=== PATIENT | male | born 1985 | race Caucasian/White ===

== ENCOUNTER 2018-01-14 10:06 | Emergency (ER) | payer BC ==
[~2018-01-14] VITALS: Ht 172.7 cm; Wt 111.1 kg
[2018-01-14 10:18] VITALS: BP 152/92
== END 2018-01-14 11:20 | disposition home or self-care (01) ==
LOC: ER 10:06
DX: S05.02XA Injury of conjunctiva and corneal abrasion without foreign body, left eye, initial encounter (principal); X58.XXXA Exposure to other specified factors, initial encounter; Y93.89 Activity, other specified; Y99.8 Other external cause status; Y92.89 Other specified places as the place of occurrence of the external cause

== ENCOUNTER 2022-01-15 16:46 | Inpatient (IN) | payer BC ==
[~2022-01-15] VITALS: Ht 172.7 cm; Wt 116.5 kg
[2022-01-15] VITALS (7 sets, daily range): BP systolic 133–148; BP diastolic 83–105
[2022-01-15] MEDS ORDERED: HEPARIN 1,000 UNITS/ml 1ML VIAL IV ONE (17:00)
[2022-01-15] MEDS ORDERED: ASPirin 81 mg TAB PO ONE (17:00)
[2022-01-15] MEDS ORDERED: MORPHINE SULFATE 4 MG/ML SYR/VIAL ONE (17:09)
[2022-01-15] MEDS ORDERED: ONDANSETRON HCL 4 MG/2 ML VIAL ONE (17:09)
[2022-01-15] MEDS ORDERED: MORPHINE SULFATE INJ 2 MG/ml SYRG IV ONE (17:15)
[2022-01-15] MEDS ORDERED: ONDANSETRON HCL 4 MG/2 ML VIAL IV ONE (17:15)
[2022-01-15] MEDS ORDERED: MORPHINE SULFATE INJ 2 MG/ml SYRG IV PRN ×3 (17:15→18:45)
[2022-01-15] MEDS ORDERED: NITROGLYCERIN 0.4 MG SL TAB SL PRN ×3 (17:15→18:45)
[2022-01-15] MEDS ORDERED: MIDAZOLAM HCL 2MG/2ML 2ml VIAL (1mg/ml) ONE (17:21)
[2022-01-15] MEDS ORDERED: SODIUM CHL 0.9% 0 ML ONE (17:21)
[2022-01-15] MEDS ORDERED: fentaNYL CITRATE 100 MCG/2 ML VL ONE (17:21)
[2022-01-15] MEDS ORDERED: HEPARIN SODIUM (PORCINE) 5000 UNITS/ML 1ML VIAL ONE ×2 (17:21→18:02)
[2022-01-15] MEDS ORDERED: VERAPAMIL 2.5MG/ML INJ 2ML VIAL IV ONE (17:21)
[2022-01-15] MEDS ORDERED: SODIUM CHL 0.9% 50 ML ONE (17:22)
[2022-01-15] MEDS ORDERED: ANGIOMAX 250 MG VIAL IV ONE (17:22)
[2022-01-15] MEDS ORDERED: LIDOCAINE 2%HCL (LOCAL ANESTH.) INJ 20ML MDV ONE (17:22)
[2022-01-15 17:48] LABS: Basophils # (auto) 0.1 10 ^3/uL (0-0.2); Eosinophils # (auto) 0.3 10 ^3/uL (0-0.8); Lymphocytes # (auto) 2.4 10 ^3/uL (0.4-5.4); Nucleated Red Blood Cells % 0.1 %
[2022-01-15 17:49] LABS: Albumin 4.6 g/dL (3.4-5.0); Basophils % (auto) 0.6 % (0.0-2.0); Eosinophils % (auto) 2.3 % (0.0-7.0); Hematocrit 53.6 % (41.0-53.0); Lymphocytes % (auto) 16.3 % (10.0-50.0); Magnesium 2.5 mg/dL (1.6-2.6); Mean Corpuscular Hemoglobin 25.9 pg (28.0-32.0); Mean Corpuscular Hgb Conc. 31.7 g/dL (32.0-36.0); Mean Corpuscular Volume 81.5 fL (80.0-100.0); Monocytes # (auto) 1.1 10 ^3/uL (0-1.3); Neutrophils # (auto) 11.1 10 ^3/uL (1.6-8.6); Neutrophils % (auto) 73.8 % (37.0-80.0); Potassium 3.9 mmol/L (3.5-5.1); Red Blood Cells 6.57 10^6/uL (4.5-5.90); Red Cell Distribution Width 15.5 % (11.8-14.3)
[2022-01-15 17:52] LABS: BUN/Creatinine Ratio 12.6; Bilirubin, Total 0.6 mg/dL (0.2-1.0); Total Protein 8.2 g/dL (6.4-8.2)
[2022-01-15 17:55] LABS: INR 0.99 (0.9-1.15); Partial Thromboplastin Time 22.8 sec (24.6-33.4)
[2022-01-15] MEDS ORDERED: IODIXANOL 320MG/ML 100ML BTL IV ONE ×2 (17:55→18:03)
[2022-01-15 17:57] LABS: Cholesterol 233 mg/dL (< 200)
[2022-01-15 18:00] LABS: HDL Cholesterol 46 mg/dL (40-59); LDL Cholesterol 172 mg/dL (< 100); Triglycerides 159 mg/dL (< 150)
[2022-01-15] MEDS ORDERED: EPTIFIBATIDE INJ (2MG/ML) 10ML VIAL IV ONE (18:10)
[2022-01-15] MEDS ORDERED: TICAGRELOR 90 MG TAB ONE (18:18)
[2022-01-15] MEDS ORDERED: ZOLPIDEM TARTRATE 5 MG TAB PO PRN (18:45)
[2022-01-15] MEDS: TICAGRELOR 90 MG TAB PO SCH (21:33)
[2022-01-15] MEDS: CARVEDILOL 3.125 MG TAB PO SCH (21:34)
[2022-01-15] MEDS ORDERED: ATORVASTATIN 20 MG TAB PO SCH (22:00)
[2022-01-16 05:00] VITALS: BP 133/91
[2022-01-16 09:00] VITALS: BP 149/99
[2022-01-16] MEDS ORDERED: ATORVASTATIN 20 MG TAB PO SCH (10:00)
[2022-01-16] MEDS ORDERED: ASPirin 81 mg TAB PO SCH ×2 (10:00)
[2022-01-16] MEDS ORDERED: LISINOPRIL 5 MG TAB PO SCH (10:00)
[2022-01-16] MEDS: TICAGRELOR 90 MG TAB PO SCH (10:12)
[2022-01-16] MEDS: CARVEDILOL 3.125 MG TAB PO SCH (10:12)
[2022-01-16 12:12] LABS: Basophils # (auto) 0.1 10 ^3/uL (0-0.2); Basophils % (auto) 0.5 % (0.0-2.0); Eosinophils # (auto) 0.4 10 ^3/uL (0-0.8); Monocytes # (auto) 0.9 10 ^3/uL (0-1.3); Red Cell Distribution Width 15.7 % (11.8-14.3)
[2022-01-16 12:13] LABS: Eosinophils % (auto) 4.2 % (0.0-7.0); Hemoglobin 16.4 g/dL (13.5-17.5); Lymphocytes # (auto) 1.9 10 ^3/uL (0.4-5.4); Lymphocytes % (auto) 19.5 % (10.0-50.0); Mean Corpuscular Hemoglobin 26.3 pg (28.0-32.0); Mean Corpuscular Hgb Conc. 32.7 g/dL (32.0-36.0); Mean Corpuscular Volume 80.6 fL (80.0-100.0); Monocytes % (auto) 9.2 % (0.0-12.0); Neutrophils # (auto) 6.5 10 ^3/uL (1.6-8.6); Neutrophils % (auto) 66.6 % (37.0-80.0); Nucleated Red Blood Cells % 0.1 %; Red Blood Cells 6.21 10^6/uL (4.5-5.90); White Blood Cell 9.8 10^3/uL (4.4-10.8)
[2022-01-16 12:25] LABS: BUN/Creatinine Ratio 14.6; Calcium 9.4 mg/dL (8.5-10.1); Potassium 3.8 mmol/L (3.5-5.1)
[2022-01-16 12:52] VITALS: BP 132/85
[2022-01-16 16:57] VITALS: BP 125/83
[2022-01-16] MEDS ORDERED: IOHEXOL 350 MG/ML 100ML IJ ONE (16:58)
[2022-01-16] MEDS ORDERED: TICA90TA PO (18:56)
[2022-01-16] MEDS ORDERED: ASPI-325 PO (18:56)
[2022-01-16] MEDS ORDERED: LISI-275 PO (18:56)
[2022-01-16] MEDS ORDERED: CAR3125T PO (18:56)
[2022-01-16] MEDS ORDERED: ATOR20TA50 PO (18:56)
[2022-01-16] MEDS ORDERED: ACETAMINOPHEN 500 MG TAB PO ONE (19:00)
[2022-01-16 19:01] LABS: Urine Bacteria NONE SEEN /hpf (None Seen); Urine Blood Negative /uL (Negative); Urine Specific Gravity 1.011 (1.001-1.035); Urine WBC <1 /hpf (0 - 3)
[2022-01-16 19:05] LABS: Alcohol, Urine < 3.0 mg/dL (0-10); Amphetamine Screen, Urine NEGATIVE (NEGATIVE); Barbiturate Scree,Urine NEGATIVE (NEGATIVE); Benzodiazephine Screen, Urine POSITIVE (NEGATIVE); Cannabinoid Screen, Urine NEGATIVE (NEGATIVE); Cocaine Screen, Urine NEGATIVE (NEGATIVE); Opiate Scree,Urine NEGATIVE (NEGATIVE); Phencyclidine Screen, Urine NEGATIVE (NEGATIVE)
[2022-01-18 10:48] LABS: Free T4 (Free Thyroxine) 0.83 ng/dL (0.89-1.76)
[2022-01-18 10:49] LABS: Free T3 2.97 pg/mL (2.3-4.2)
== END 2022-01-16 21:40 | disposition home or self-care (01) | DRG 246 ==
LOC: ER 16:46 → TELE 17:07 → ER 17:30 → TELE-WESTW 19:55
PROVIDERS: ADMIT Nurse Practitioner Acute Care; ATTEND Nurse Practitioner Acute Care
PROC: 027034Z Dilation of Coronary Artery, One Artery with Drug-eluting Intraluminal Device, Percutaneous Approach (ICD-10-PCS; principal; 2022-01-15)
PROC: 02C03ZZ Extirpation of Matter from Coronary Artery, One Artery, Percutaneous Approach (ICD-10-PCS; 2022-01-15)
PROC: B240ZZ3 Ultrasonography of Single Coronary Artery, Intravascular (ICD-10-PCS; 2022-01-15)
PROC: 4A023N7 Measurement of Cardiac Sampling and Pressure, Left Heart, Percutaneous Approach (ICD-10-PCS; 2022-01-15)
PROC: B211YZZ Fluoroscopy of Multiple Coronary Arteries using Other Contrast (ICD-10-PCS; 2022-01-15)
PROC: B215YZZ Fluoroscopy of Left Heart using Other Contrast (ICD-10-PCS; 2022-01-15)
DX: I21.3 ST elevation (STEMI) myocardial infarction of unspecified site (principal); N17.0 Acute kidney failure with tubular necrosis; E66.9 Obesity, unspecified; E78.5 Hyperlipidemia, unspecified; I25.10 Atherosclerotic heart disease of native coronary artery without angina pectoris; R79.89 Other specified abnormal findings of blood chemistry; Z20.822 Contact with and (suspected) exposure to COVID-19; Z68.39 Body mass index [BMI] 39.0-39.9, adult
CPT/HCPCS: 36415; 71045; 71275; 80048; 80053; 80061; 80307; 81001; 83036; 83735; 83880; 84439; 84443; 84481; 84484; 85025; 85379; 85610; 85730; 92933; 92978; 93005; 93306; 93458; 93970; 96374; 96375; 99152; 99153; 99291; C1874; C1887; G0378; J2250; J2405; Q9967

== ENCOUNTER 2023-02-14 12:16 | Emergency (ER) | payer BC ==
[~2023-02-14] VITALS: Ht 172.7 cm; Wt 119.8 kg
[~2023-02-14 12:16] MED LIST: ASPI-325 PO; ATOR20TA50 PO; CAR3125T PO; LISI-275 PO; TICA90TA PO
[2023-02-14 12:58] LABS: Basophils # (auto) 0 10 ^3/uL (0-0.2); Basophils % (auto) 0.6 % (0.0-2.0); Eosinophils # (auto) 0.4 10 ^3/uL (0-0.8); Hematocrit 50.4 % (41.0-53.0); Lymphocytes # (auto) 1.9 10 ^3/uL (0.4-5.4); Lymphocytes % (auto) 26.3 % (10.0-50.0); Mean Corpuscular Hemoglobin 28.6 pg (28.0-32.0); Mean Corpuscular Hgb Conc. 33.7 g/dL (32.0-36.0); Monocytes # (auto) 0.6 10 ^3/uL (0-1.3); Monocytes % (auto) 8.4 % (0.0-12.0); Neutrophils # (auto) 4.2 10 ^3/uL (1.6-8.6); Neutrophils % (auto) 58.7 % (37.0-80.0); Nucleated Red Blood Cells % 0.1 %; Red Blood Cells 5.93 10^6/uL (4.5-5.90); Red Cell Distribution Width 14.5 % (11.8-14.3); White Blood Cell 7.2 10^3/uL (4.4-10.8)
[2023-02-14 13:19] LABS: INR 1.06 (0.9-1.15); Partial Thromboplastin Time 28.7 SEC (24.5-34.5); Prothrombin Time 11.1 sec (9.3-11.8)
[2023-02-14 13:51] LABS: Alanine Aminotransferase 30 U/L (7-40); Albumin 4.9 g/dL (3.2-4.8); Alkaline Phosphatase 73 U/L (46-116); Anion Gap 5 (5-15); Aspartate Aminotransferase 21 U/L (13-40); BUN/Creatinine Ratio 10.2 (10.0-20.0); Bilirubin, Total 0.6 mg/dL (0.2-1.0); Blood Urea Nitrogen 12 mg/dL (9-23); Calcium 9.6 mg/dL (8.7-10.4); Carbon Dioxide 27 mmol/L (20-30); Chloride 105 mmol/L (98-107); Glucose 92 mg/dL (74-106); Magnesium 2.2 mg/dL (1.6-2.6); Potassium 4.2 mmol/L (3.5-5.1); Sodium 137 mmol/L (136-145)
[2023-02-14 17:07] VITALS: BP 119/80; PULSE 80; RESP 18; TEMP 97.8; O2SAT 97
== END 2023-02-14 17:08 | disposition home or self-care (01) ==
LOC: ER 12:16
DX: R07.89 Other chest pain (principal); I10 Essential (primary) hypertension; I25.2 Old myocardial infarction; I25.10 Atherosclerotic heart disease of native coronary artery without angina pectoris; E78.5 Hyperlipidemia, unspecified; Z79.82 Long term (current) use of aspirin; Z79.899 Other long term (current) drug therapy
CPT/HCPCS: 36415; 71045; 80053; 83735; 83880; 84484; 85025; 85610; 85730; 93005

== ENCOUNTER 2025-02-22 19:46 | Emergency (ER) | payer BC ==
[~2025-02-22] VITALS: Ht 172.7 cm; Wt 119.3 kg
[~2025-02-22 19:46] MED LIST changes: -CAR3125T PO; +CARV-214 PO
[2025-02-22 19:54] VITALS: BP 137/101; PULSE 110; RESP 19; TEMP 98.5; O2SAT 95
--- NOTE | 2025-02-22 21:13 | ED.PDOC ---
Foreign Body HPI Comments This is a pleasant but morbidly obese 39 year-old male who presents to the ED with a chief complaint of foreign body in the esophagus after eating a steak minutes ago. Patient reports the foreign object is currently located in the lower esophagus. Patient reports x30 episodes of emesis, with an inability to hold liquids. Patient reports this happening before, where the foreign body was resolved with Glucagon. Patient has no further complaints at this time and otherwise denies SOB, cough, abdominal pain, fever, or dizziness. Patient was mildly tachycardic at arrival. Chief Complaint: Foreign Body Time Seen by MD: 20:40 Primary Care Provider: YESENIA History of Present Illness: Nurses Notes, Medications, Allergies Allergies: Coded Allergies: NO KNOWN ALLERGIES (Unverified , 01/14/18) Home Meds Active Scripts Ticagrelor Base (BRILINTA) 90 Mg Tab, 90 MG PO BID, #60 TAB Prov:RODOLFO SMITH MD 01/16/22 Lisinopril (Lisinopril) 5 Mg Tab, 2.5 MG PO DAILY, #30 TAB Prov:RODOLFO SMITH MD 01/16/22 Carvedilol (COREG) 3.125 Mg Tab, 3.125 MG PO BID, #60 TAB Prov:RODOLFO SMITH MD 01/16/22 Atorvastatin Calcium (ATORVASTATIN CALCIUM) 20 Mg Tab, 40 MG PO HS, #30 TAB Prov:RODOLFO SMITH MD 01/16/22 Aspirin (Aspirin Low Dose) 81 Mg Tab, 81 MG PO DAILY, #30 TAB Prov:RODOLFO SMITH MD 01/16/22 Information Source: Patient Mode of Arrival: Ambulatory Timing: Minutes Duration: Since onset Severity: Moderate Prehospital treatment: None Location: Esophagus Context: Ingestion Foreign Body: Other (Meter) Removal: Was not attempted Associated signs and symptoms: Other (foreign body sensation) Past Medical History PAST MEDICAL HISTORY: CAD, High Lipids, HTN, [place] Past Medical History (Other): Patient has a history of swallowed foreign body in the past. Surgical History: Denies all surgeries Family History Family History: Family hx of Cancer Social History Smoker: Non-Smoker Alcohol: Rarely Drugs: Denies Drug Use Lives In: Home Constitutional: denies: chills, diaphoresis, fatigue, fever, malaise, sweats, weakness, others EENTM: reports: others (Entrapped foreign body in his esophagus); denies: blur red vision, double vision, ear bleeding, ear discharge, ear drainage, ear pain, ear ringing, eye pain, eye redness, hearing loss, mouth pain, mouth swelling, nasal discharge, nose bleeding, nose congestion, nose pain, photophobia, tearing, throat pain, throat swelling, voice changes Respiratory: denies: cough, hemoptysis, orthopnea, SOB at rest, shortness of b reath, SOB with excertion, stridor, wheezing, others Cardiovascular: denies: chest pain, dizzy spells, diaphoresis, Dyspnea on exertion, edema, irregular heart beat, left arm pain, lightheadedness, palpitations, PND, syncope, others Gastrointestinal: denies: abdomen distended, abdominal pain, blood streaked bowels, constipated, diarrhea, dysphagia, difficulty swallowing, hematemesis, melena, nausea, poor appetite, poor fluid intake, rectal bleeding, rectal pain, vomiting, others Genitourinary: denies: burning, dysuria, flank pain, frequency, hematuria, incontinence, penile discharge, penile sore, pain, testicle pain, testicle swelling, urgency, others Neurological: denies: dizziness, fainting, headache, left sided numbness, left sided weakness, numbness, paresthesia, pre-existing deficit, right sided numbness, right sided weakness, seizure, speech problems, tingling, tremors, weakness, others Musculoskeletal: denies: back pain, gout, joint pain, joint swelling, muscle pain, muscle stiffness, neck pain, others Integumetry: denies: bruises, change in color, change in hair/nails, dryness, laceration, lesions, lumps, rash, wounds, others Allergic/Immunocompromised: denies: Difficulty Healing, Frequent Infections, Hives, Itching, others Hematologic/Lymphatic: denies: anemia, blood clots, easy bleeding, easy bruising, swollen glands, others Endocrine: denies: excessive hunger, excessive sweating, excessive thirst, excessive urination, flushing, intolerance to cold, intolerance to heat, unexplained weight gain, unexplained weight loss, others Psychiatric: denies: anxiety, bipolar disorder, depression, hopeless, panic disorder, schizophrenia, sleepless, suicidal, others All Other Systems: Reviewed and Negative Physical Exam General Appearance: Mild Distress (Moderate distress due to the foreign body sensation in his throat.), Obese HEENT: Normal ENT Inspection, Pharynx Normal, TMs Normal, Other (Unremarkable oropharyngeal evaluation. No foreign body noted. Airway seems patent. No stridor appreciated.) Neck: Full Range of Motion, Non-Tender, Normal, Normal Inspection Respiratory: Chest Non-Tender, Lungs Clear, No Accessory Muscle Use, No Respiratory Distress, Normal Breath Sounds Cardiovascular: No Edema, No JVD, No Murmur, No Gallop, Normal Peripheral Pulses, Regular Rate/Rhythm Breast Exam: Deferred Gastrointestinal: No Organomegaly, Non Tender, No Pulsatile Mass, Normal Bowel Sounds, Soft Genitalia: Deferred Pelvic: Deferred Rectal: Deferred Extremities: No calf tenderness, Normal capillary refill, Normal inspection, Normal range of motion, Non-tender, No pedal edema Neurologic: Alert Cerebellar Function: NOT DONE Reflexes: NOT DONE Skin: Dry, Normal Color, Warm Lymphatic: No Adenopathy Was a procedure done? Was a procedure done?: No FB Differential Dx Differential Diagnosis: Esophageal Obstruction, Foreign Body X-Ray, Labs, Meds, VS Vital Signs Date Time Temp Pulse Resp B/P (MAP) Pulse Ox O2 Delivery O2 Flow Rate FiO2 02/22/25 19:54 98.5 110 19 137/101 95 98.5 X-Ray, Labs, Meds, VS Comment All studies performed the ED were evaluated by me personally. Soft tissue of the neck was unremarkable for any entrapped foreign body. While waiting the glucagon dispensing, patient states he was able to swallow a cupful of water. Patient believes that the foreign body has resolved. Advised patient to consume smaller portions and masticate well while eating. Images Reviewed?: Images reviewed and evaluated by me Time of 1ST Reevaluation: 22:46 Reevaluation 1ST: Improved Consultation: PCP Patient Education/Counseling: Diagnosis, Treatment Family Education/Counseling: Diagnosis, Treatment, No Family Present Medical Screening: No EMC Exist At This Time Departure 1 Departure Time of Disposition: 22:46 Impression: Primary Impression: Foreign body in throat Disposition: HOME / SELF CARE / HOMELESS Condition: Stable Additional Instructions: Advised patient tried to consumed smaller portions and masticate his food well prior to swelling. Discharged With: Self, Friend Critical Care Note Critical Care Time?: No Stability Stability form required: No Heart Score Heart Score: Heart Score Response (Comments) Value History N/A 0 EKG N/A 0 Age N/A 0 Risk Factors N/A 0 Troponin N/A 0 Total 0 I personally scribed for RAMONE WASHINGTON PAC ([email or web address]) on 02/22/25 at 21:13. Electronically submitted by [employer]). RAMONE WASHINGTON PAC Feb 22, 2025 21:13
--- NOTE | 2025-02-22 21:47 | DVH ---
EXAM: XY NECK FOR SOFT TISSUE INDICATION: Swallowed foreign body TECHNIQUE: 2 views of the soft tissues of the neck COMPARISON: None FINDINGS/IMPRESSION: No radiographic evidence of an acute osseous abnormality. There is no acute fracture, osseous malalig nment, or aggressive focal osseous lesion. Straightening of the normal cervical lordosis, which may b e seen in the setting of patient positioning versus muscular spasm. No prevertebral edema. No visuali zed radiopaque foreign body.
[2025-02-23] MEDS: GLUCAGON EMERG KIT 1mg/1ml SUBCUT ONE (00:15)
== END 2025-02-23 01:42 | disposition home or self-care (01) ==
LOC: ER 19:46
DX: T18.108A Unspecified foreign body in esophagus causing other injury, initial encounter (principal); I10 Essential (primary) hypertension; I25.10 Atherosclerotic heart disease of native coronary artery without angina pectoris; Z79.899 Other long term (current) drug therapy; W44.9XXA Unspecified foreign body entering into or through a natural orifice, initial encounter; Y93.89 Activity, other specified; Y92.89 Other specified places as the place of occurrence of the external cause; Y99.8 Other external cause status
CPT/HCPCS: 70360